=== PATIENT | female | born 1940 | race Caucasian/White ===

== ENCOUNTER 2016-05-04 18:55 | Emergency (ER) | payer OTHER ==
[~2016-05-04] VITALS: Ht 162.6 cm; Wt 59.0 kg
[~2016-05-04 18:55] MED LIST: ACET-1256 PO; ADVIN50050 INH; ALBU1AER9 INH; BCTRO; BUSP5TAB59 PO; DOUNEB INH; Enteral Nutrition Formula PO; IPRASOL4 INH; MAGNTAB4 PO; MULT-506 PO; PRED10TA PO; SIMV40TA2 PO; SNG10 PO
[2016-05-04 19:06] VITALS: TEMP 36.8; Ht 162.6 cm; Wt 59.0 kg
[2016-05-04] MEDS ORDERED: METHYLPREDNISOLONE 125 MG VIAL IV STA (19:35)
--- NOTE | 2016-05-04 19:38 | EMERGENCY ROOM VISIT NOTE ---
History Report prepared by Wojciech: Valorie Mandujano Under the Supervision of: Dr. Don Pradhan M.D. First contact with patient: 19:26 Chief Complaint: COUGH Stated Complaint: WHEEZING, COUGHING Nursing Triage Summary: Patient c/o of coughing and wheezing x 3 days. Patient had pneumonia 1 1/2 months ago. History of Present Illness The patient is a 75 year old female who presents to the Emergency Room with complaints of persistent coughing that started three days ago. Per the patient' s granddaughter, the patient was diagnosed with pneumonia at the end of February. She is concerned that the patient may have pneumonia again. The patient denies fevers, chest pain, or abdominal pain. Source of History: patient, family Onset: Three days ago Position: other (Respiratory ) Timing: other (Persistent ) Modifying Factors (Relieving): other (None) Associated Symptoms: No abdominal pain, No chest pain, No fevers Review of Systems See HPI for pertinent positives & negatives. A total of 10 systems reviewed and were otherwise negative. Past Medical & Surgical Medical Problems: (1) COPD (chronic obstructive pulmonary disease) (2) Depression (3) Depressive Disorder Nec (4) Esophageal Reflux (5) Gastrointest Hemorr Nos (6) GERD (gastroesophageal reflux disease) (7) Irritable bowel (8) Irritable Bowel Syndrome (9) Mitral Valve Dis Nec/Nos (10) MVP (mitral valve prolapse) (11) Sebaceous Cyst (12) Sepsis Surgical Problems: (1) S/P (2) S/P partial hysterectomy Social History Problems: (1) Tobacco use disorder Family History Heart disease Kidney disease Kidney stones Social History Smoking Status: Former Smoker Alcohol Use: none Drug Use: none Marital Status: Housing Status: lives with family Occupation Status: employed Current/Historical Medications Scheduled Acetaminophen (Tylenol), 500-1,000 MG PO Q4HR PRN Fluticasone Prop/Salmeterol (Advair Diskus 500/50 60 Dose), 1 PUFF INH BID Ipratropium [place] (Atrovent 0.02% Soln), 1 VIAL INH UD Levofloxacin (Levaquin), 500 MG PO DAILY Montelukast Sodium (Singulair), 10 MG PO DAILY Multivitamin (Multivitamin), 1 TAB PO BID Mupirocin (Mupirocin), 1 APPLN NA TID Prednisone (Prednisone), 10 MG PO PRN UD Prednisone (Prednisone), 20 MG PO DAILY Simvastatin (Zocor), 40 MG PO QPM Venlafaxine Hcl (Effexor Extended Rel), 75 MG PO QAM Venlafaxine Hcl (Effexor Extended Rel), 150 MG PO QAM Scheduled PRN Albuterol (Proair Hfa), 2 PUFF INH Q4 PRN for SOB/Wheezing Albuterol Sulfate (Albuterol Sulfate), 1 VIAL NEB Q4 PRN for SOB/Wheezing Ipratropium-Albuterol (Duoneb), 1 TREATMENT INH Q4H PRN for SOB/Wheezing Allergies Coded Allergies: Cephalosporins (Verified Allergy, Severe, RASH, 05/04/16) Doxycycline (Verified Allergy, Unknown, UNKNOWN, 05/04/16) Clavulanic Acid (Verified Adverse Reaction, Mild, NAUSEA AND VOMITING, ) Physical Exam Vital Signs Date Time Temp Pulse Resp B/P Pulse Ox O2 Delivery O2 Flow Rate FiO2 05/04/16 22:27 106 20 105/82 92 05/04/16 21:12 122 20 92 05/04/16 19:34 91 05/04/16 19:09 94 Room Air 05/04/16 19:06 36.8 101 18 130/77 94 Room Air Physical Exam CONSTITUTIONAL: Mild distress HEENT: No icterus, moist mucous membranes NECK: No meningismus, trachea is midline. CARDIOVASCULAR: Regular rate, normal perfusion RESPIRATORY: Unlabored breathing. Moderate bilateral wheezing GASTROINTESTINAL: Non-tender GENITOURINARY: No flank tenderness MUSCULOSKELETAL: Full range of motion NEUROLOGIC: No acute gross focal deficits. PSYCHIATRIC: Normal affect SKIN: Normal for ethnicity. Medical Decision & Procedures ER Provider Diagnostic Interpretation: X-ray results as stated below per interpretation by me and the radiologist. CHEST 2 VIEWS ROUTINE CLINICAL HISTORY: cough dyspnea COMPARISON STUDY: 03/08/2016 FINDINGS: Poorly defined parenchymal infiltrate right base. Mild Baseline emphysematous change. Diaphragms smooth. IMPRESSION: Infiltrate right base Electronically signed by: John Goins M.D. 05/04/2016 8:37 PM Dictated Date/Time: 05/04/2016 8:36 PM Laboratory Results 05/04/16 19:50 Red Blood Count 4.01, Mean Corpuscular Volume 90.8, Mean Corpuscular Hemoglobin 30.9, Mean Corpuscular Hemoglobin Concent 34.1, Mean Platelet Volume 9.9, Neutrophils (%) (Auto) 42.8, Lymphocytes (%) (Auto) 34.6, Monocytes (%) (Auto) 20.2, Eosinophils (%) (Auto) 1.8, Basophils (%) (Auto) 0.2, Neutrophils # (Auto ) 2.18, Lymphocytes # (Auto) 1.76, Monocytes # (Auto) 1.03, Eosinophils # (Auto ) 0.09, Basophils # (Auto) 0.01 05/04/16 19:50 Test 05/04/16 00:00 05/04/16 19:50 Influenza Type A Antigen Neg for Influ A (NEG) Influenza Type B Antigen Neg for Influ B (NEG) White Blood Count 5.09 K/uL (4.8-10.8) Red Blood Count 4.01 M/uL (4.2-5.4) Hemoglobin 12.4 g/dL (12.0-16.0) Hematocrit 36.4 % (37-47) Mean Corpuscular Volume 90.8 fL (80-100) Mean Corpuscular Hemoglobin 30.9 pg (25-34) Mean Corpuscular Hemoglobin Concent 34.1 g/dl (32-36) Platelet Count 238 K/uL (130-400) Mean Platelet Volume 9.9 fL (7.4-10.4) Neutrophils (%) (Auto) 42.8 % Lymphocytes (%) (Auto) 34.6 % Monocytes (%) (Auto) 20.2 % Eosinophils (%) (Auto) 1.8 % Basophils (%) (Auto) 0.2 % Neutrophils # (Auto) 2.18 K/uL (1.4-6.5) Lymphocytes # (Auto) 1.76 K/uL (1.2-3.4) Monocytes # (Auto) 1.03 K/uL (0.11-0.59) Eosinophils # (Auto) 0.09 K/uL (0-0.5) Basophils # (Auto) 0.01 K/uL (0-0.2) RDW Standard Deviation 47.9 fL (36.4-46.3) RDW Coefficient of Variation 14.4 % (11.5-14.5) Immature Granulocyte % (Auto) 0.4 % Immature Granulocyte # (Auto) 0.02 K/uL (0.00-0.02) Anion Gap 10.0 mmol/L (3-11) Est Creatinine Clear Calc Drug Dose 53.4 ml/min Estimated GFR () 83.5 Estimated GFR (Non- 72.1 BUN/Creatinine Ratio 19.4 (10-20) Calcium Level 9.3 mg/dl (8.5-10.1) Total Bilirubin 0.3 mg/dl (0.2-1) Aspartate Amino Transf (AST/SGOT) 27 U/L (15-37) Alanine Aminotransferase (ALT/SGPT) 26 U/L (12-78) Alkaline Phosphatase 74 U/L (45-117) Total Protein 7.2 gm/dl (6.4-8.2) Albumin 3.7 gm/dl (3.4-5.0) Globulin 3.5 gm/dl (2.5-4.0) Albumin/Globulin Ratio 1.1 (0.9-2) Labs reviewed by ED physician. Medications Administered Medications (Trade) Dose Ordered Sig/Shellie Route Start Time Stop Time Status Last Admin Dose Admin Methylprednisolone Sodium Succinate (Solu-Medrol IV) 125 mg NOW STAT IV 05/04/16 19:35 05/04/16 19:37 DC 05/04/16 19:59 125 MG Albuterol/ Ipratropium (Duoneb) 6 ml QIDR INH 05/04/16 20:00 06/03/16 19:59 05/04/16 19:58 6 ML Albuterol (Ventolin Hfa Inhaler) 60 puffs STK-MED ONCE INH 05/04/16 19:55 05/04/16 19:57 DC 05/04/16 19:59 60 PUFFS Ceftriaxone Sodium 1 gm 1 gm NOW STAT IV 05/04/16 21:49 05/04/16 21:52 DC 05/04/16 22:07 1 GM Azithromycin/ Dextrose (Zithromax IV/D5 250ml) 255 ml @ 125 mls/hr ONE ONCE IV 05/04/16 22:00 05/05/16 00:02 05/04/16 22:26 125 MLS/HR ED Course 4: Past medical records reviewed. The patient was evaluated in room C6. A complete history and physical examination was performed. 1935: Ordered Solu- Medrol IV 125 mg IV. 1944: Ordered Oxycodone/ Acetaminophen 1 homepack PO. 1999: Ordered Duoneb 6 ml INH. 2148: Ordered Rocephin Injection 1 gm IV. 2149: Upon reexamination the patient is resting comfortably. I discussed results and treatment plan with the patient and her granddaughter. They verbalized agreement and understanding. The patient is ready for discharge. 2199: Ordered Azithromycin 500 mg/ Dextrose 225 ml @ 125 mls/hr IV. Medical Decision Differential diagnoses include but are not limited to; pneumonia, COPD exacerbation, viral syndrome 75-year-old presented to the emergency room with cough and wheezing with family concern over potential of pneumonia. I know she had a hospital admission for pneumonia over a month ago. Chest x-ray concerning for infiltrate and moderate wheezing was noted on exam but improved after treatments. She was given IV doses of antibiotics here and discharged with Levaquin as well as prednisone 20 mg daily for 4 days. She has sufficient supplies of albuterol at home. Family concerned of potential for bad outcome although patient appears quite well like to go home. It is noted the port score is equivocal in this regard and both inpatient and outpatient treatment is considered appropriate in this setting. Patient and family were advised that she can either be discharged for Observation and without it was their choice. Impression Primary Impression: Pneumonia Scribe Attestation The scribe's documentation has been prepared under my direction and personally reviewed by me in its entirety. I confirm that the note above accurately reflects all work, treatment, procedures, and medical decision making performed by me. Departure Information Dispostion Home / Self-Care Prescriptions Levofloxacin (Levaquin) 500 Mg Tab 500 MG PO DAILY for 7 Days, #7 TAB Prov: Don Pradhan MD 05/04/16 Prednisone (Prednisone) 20 Mg Tab 20 MG PO DAILY for 4 Days, #4 TAB Prov: Don Pradhan MD 05/04/16 Referrals Robert Caldera M.D. (PCP) Forms HOME CARE DOCUMENTATION FORM, IMPORTANT VISIT INFORMATION Patient Instructions My [facility]
[2016-05-04] MEDS ORDERED: PERCOCET HOME PACK PO ONE (19:45)
[2016-05-04] MEDS ORDERED: ALBUTEROL HFA 8 GM INHALER INH ONE (19:55)
[2016-05-04 19:59] LABS: BASO % 0.2 %; BASO ABS # 0.01 K/uL (0-0.2); COMPLETE YES; EOS % 1.8 %; HEMATOCRIT 36.4 % (37-47); IG% 0.4 %; LYMPH % 34.6 %; LYMPH ABS # 1.76 K/uL (1.2-3.4); MEAN CELL VOLUME 90.8 fL (80-100); MEAN CORPUSCULAR HEMOGLOBIN 30.9 pg (25-34); MEAN CORPUSCULAR HGB CONC 34.1 g/dl (32-36); MEAN PLATELET VOLUME 9.9 fL (7.4-10.4); MONO % 20.2 %; NEUT % 42.8 %; PLATELET COUNT 238 K/uL (130-400); RED BLOOD COUNT 4.01 M/uL (4.2-5.4); WHITE BLOOD COUNT 5.09 K/uL (4.8-10.8)
[2016-05-04] MEDS ORDERED: ALBUT/IPRATROP 3MG/0.5MG NEB 3 ML VIAL INH SCH (20:00)
[2016-05-04 20:18] LABS: BUN/CREATININE RATIO 19.4 (10-20); CALCIUM 9.3 mg/dl (8.5-10.1); CREATININE 0.81 mg/dl (0.60-1.20); POTASSIUM 3.9 mmol/L (3.5-5.1)
[2016-05-04] MEDS ORDERED: EFFSR150 PO (20:20)
[2016-05-04] MEDS ORDERED: EFFSR75 PO (20:20)
[2016-05-04 20:21] LABS: ALB/GLOB RATIO 1.1 (0.9-2)
--- NOTE | 2016-05-04 20:38 | DIAGNOSTIC IMAGING REPORT ---
CHEST 2 VIEWS ROUTINE CLINICAL HISTORY: cough dyspnea COMPARISON STUDY: 03/08/2016 FINDINGS: Poorly defined parenchymal infiltrate right base. Mild Baseline emphysematous change. Diaphragms smooth. IMPRESSION: Infiltrate right base Electronically signed by: John Goins M.D. 05/04/2016 8:37 PM Dictated Date/Time: 05/04/2016 8:36 PM
[2016-05-04] MEDS ORDERED: IPRASOL4 INH (20:59)
[2016-05-04] MEDS ORDERED: ALBU1.257 NEB (20:59)
[2016-05-04] MEDS ORDERED: ADVIN50/60 INH (20:59)
[2016-05-04] MEDS ORDERED: PRED10TA PO (20:59)
[2016-05-04] MEDS ORDERED: MONT1TAB3 PO (20:59)
[2016-05-04] MEDS ORDERED: ATRINSX INH (20:59)
[2016-05-04] MEDS ORDERED: AZITTAB PO (21:48)
[2016-05-04] MEDS ORDERED: CEFTRIAXONE SOD INJ 1 GM ADDVIAL IV STA (21:49)
[2016-05-04] MEDS ORDERED: AZITHROMYCIN IV 500 MG in DEXTROSE 5% 250ML 250 ML IV ONE (22:00)
[2016-05-04] MEDS ORDERED: PRED20TA PO (22:05)
[2016-05-04] MEDS ORDERED: LEVO1TAB33 PO (22:11)
[2016-05-04 23:29] VITALS: BP 127/84; PULSE 70; O2SAT 96
== END 2016-05-04 23:35 | disposition home or self-care (01) ==
LOC: C.EDB 18:57 → C.EDC 23:35
DX: J18.9 Pneumonia, unspecified organism (principal); J44.9 Chronic obstructive pulmonary disease, unspecified; Z82.49 Family history of ischemic heart disease and other diseases of the circulatory system; Z87.891 Personal history of nicotine dependence

== ENCOUNTER → 2016-05-12 | Outpatient (CLI) | payer OTHER ==
[~2016-05-12] MED LIST changes: +ADVIN50/60 INH; -ADVIN50050 INH; +ALBU1.257 NEB; +ATRINSX INH; -BUSP5TAB59 PO; -DOUNEB INH; +EFFSR150 PO; +EFFSR75 PO; -Enteral Nutrition Formula PO; +LEVO1TAB33 PO; -MAGNTAB4 PO; +MONT1TAB3 PO; -SNG10 PO
--- NOTE | 2016-05-12 08:49 | DIAGNOSTIC IMAGING REPORT ---
CHEST CT WITHOUT CONTRAST CT DOSE: 183.76 mGycm HISTORY: Right lower lobe pneumonia. TECHNIQUE: Multiaxial CT images of the chest were performed without contrast. COMPARISON: Chest 05/04/2016. Chest CTA 03/10/2016. FINDINGS: The central airways are patent. No pleural effusions. No pneumothorax. Small focal groundglass density seen within the lingula which is new from the prior study. The right lung is essentially clear. No suspicious lytic or blastic osseous lesions. No mediastinal or hilar lymphadenopathy. Small hiatus hernia. Suggestion of prior Kobi fundoplication. Small fat-containing bilateral Bochdalek's hernias persist. Cholelithiasis. The unenhanced liver, spleen, and right adrenal gland are unremarkable. Mild left adrenal gland thickening persists. Stable 1.5 cm hyperdense lesion within the left kidney. This is incompletely characterize on this noncontrast study but favors a hyperdense cyst. Bilateral breast implants. Normal caliber thoracic aorta. IMPRESSION: 1. Right lung airspace opacity has resolved. 2. Small focal groundglass density within the lingula which is new from the prior study. Therefore, this favors a small focus of inflammatory/infectious change. 3. Cholelithiasis. 4. Additional findings as described above. Electronically signed by: Magdi Mcgowan M.D. 05/12/2016 8:47 AM Dictated Date/Time: 05/12/2016 8:41 AM
== END | disposition home or self-care (01) ==
LOC: C.CTS 08:16
PROVIDERS: ATTEND Family Medicine
DX: J18.9 Pneumonia, unspecified organism (principal); R91.1 Solitary pulmonary nodule; R91.8 Other nonspecific abnormal finding of lung field; K80.20 Calculus of gallbladder without cholecystitis without obstruction